=== PATIENT | female | born 1995 | race Caucasian/White ===

== ENCOUNTER 2017-04-24 22:10 | Inpatient (IN) ==
[2017-04-24] MEDS ORDERED: ACETAMINOPHEN 325 MG TABLET PO PRN (22:28)
[2017-04-24] MEDS ORDERED: ONDANSETRON 4 MG/2 ML VIAL IV PRN (22:28)
[2017-04-24] MEDS ORDERED: BUTORPHANOL 2 MG/ML VIAL IV PRN (22:28)
[2017-04-24] MEDS ORDERED: fentaNYL 2 MCG/ROPIV 0.2% EPID 150 ML EPIDURAL SCH (22:29)
[2017-04-24] MEDS ORDERED: ePHEDrine 50 MG/ML AMP IV PRN (22:29)
[2017-04-24] MEDS ORDERED: CITRIC ACID/SODIUM CITRATE 30 ML UDCUP PO ONE (22:29)
[2017-04-24] MEDS ORDERED: FAMOTIDINE 20 MG/2 ML VIAL IV ONE (22:29)
[2017-04-24] MEDS ORDERED: OXYTOCIN/LR 20 UNIT/1,000 ML BAG IV SCH (22:30)
[2017-04-24] MEDS ORDERED: MEPERIDINE 50 MG/1 ML VIAL IV ONE (22:30)
[2017-04-24] MEDS: LACTATED RINGERS 1,000 ML IV SCH ×2 (22:35→23:22)
[2017-04-24] MEDS ORDERED: ONDANSETRON 4 MG/2 ML VIAL ONE (22:37)
[2017-04-24] MEDS ORDERED: MEPERIDINE 50 MG/1 ML VIAL ONE (22:37)
[2017-04-24 22:48] LABS: Basophils % 0.3 % (0.0-0.8); Eosinophils # 0.5 10*3/uL (0.0-0.87); Eosinophils % 3.2 % (0.00-10.9); Hemoglobin 9.9 GM/DL (12.0-16.0); Immature Granulocytes % 0.6 %; Immature Granulocytes Absolute 0.08 #; Lymphocytes # 2.3 10*3/uL (1.4-4.0); Mean Corpuscular Hemoglobin 26 PG (27-34); Mean Corpuscular Volume 78.3 FL (87-102); Mean Platelet Volume 10.6 FL (9.6-12.0); Monocytes # 0.9 10*3/uL (0.11-0.8); Neutrophils # 10.5 10*3/uL (1.4-7.4); Neutrophils % 73.9 % (38.7-73.9); Platelet Count 211 T/CUMM (130-400); Red Blood Count 3.83 MC/CUMM (3.8-5.5); Red Cell Distribution Width 14.5 % (9.3-17.3); White Blood Count 14.2 T/CUMM (4-12)
[2017-04-24] MEDS ORDERED: LIDOCAINE 1% 50 ML VIAL ONE (23:12)
[2017-04-24] MEDS ORDERED: miSOPROStol 200 MCG TABLET ONE (23:12)
[2017-04-24] MEDS ORDERED: METHYLERGONOVINE 0.2 MG/1 ML AMP ONE (23:13)
[2017-04-24] MEDS ORDERED: CARBOPROST TROMETHAMINE 250 MCG/ML AMP IM ONE (23:13)
--- NOTE | 2017-04-24 23:13 | OB/GYN History & Physical ---
History of Present Illness History of present illness: Ms. Atkins is a 21 year old female Pt. 21y/o @ 39+3 wks YOUNG 04/28/17 presents with contractions since 6pm today. Pt. denies any vaginal bleeding or leakage of fluid. Pt. care with Dr Diaz and per pt uncomplicated except for +chlamydia 10/09/16. 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 admit to labor and delivery 2. labs 3. external monitoring 4. ivfs 5. anesthesia consult 6. AROM- clear fluid, iupc and ise placed Current Visit: Yes Results - Labs CBC & BMP: 04/24/17 22:42
--- NOTE | 2017-04-24 23:54 | Operative Note ---
Date of procedure: 04/24/17 Pre-op diagnosis: 21y/o @ 39+3 wks in active labor Post-op diagnosis: same Procedure: PROCEDURE- NORMAL SPONTANEOUS VAGINAL DELIVERY Pt. s/p of female infant delivered atraumatically at 2327 from the vertex presentation. Weight 2py37ku, apgars 8/9. Placenta delivered intact 3 vessel cord, bilateral 1st degree labial laceration repaired with 3.0 chromic in a running fashion. Excellent hemostasis. EBL 300cc. Anesthesia: none Surgeon / Physician: Nenita Tabares Estimated blood loss: other (300cc) Specimens: other (placenta, cord, membranes) Condition: stable Disposition: floor Results - Labs CBC & BMP: 04/24/17 22:42 Discharge Plan - Discharge Medications No Action No Known Home Medications [No Known Home Medications] - Follow Up or Referral - Forms/Instructions
[2017-04-25 06:44] LABS: Basophils % 0.3 % (0.0-0.8); Eosinophils # 0.1 10*3/uL (0.0-0.87); Eosinophils % 0.8 % (0.00-10.9); Hematocrit 27.9 VOL% (35.7-47.0); Hemoglobin 9.2 GM/DL (12.0-16.0); Immature Granulocytes % 0.6 %; Immature Granulocytes Absolute 0.09 #; Lymphocytes # 1.8 10*3/uL (1.4-4.0); Lymphocytes % 12.8 % (21.3-54.2); Mean Corpuscular Hemoglobin 26 PG (27-34); Mean Corpuscular Volume 78.2 FL (87-102); Mean Platelet Volume 11.1 FL (9.6-12.0); Monocytes # 0.9 10*3/uL (0.11-0.8); Monocytes % 6.2 % (1.7-12.7); Neutrophils # 11.4 10*3/uL (1.4-7.4); Neutrophils % 79.3 % (38.7-73.9); Platelet Count 189 T/CUMM (130-400); Red Blood Count 3.57 MC/CUMM (3.8-5.5); Red Cell Distribution Width 14.6 % (9.3-17.3); White Blood Count 14.3 T/CUMM (4-12)
[2017-04-25] MEDS: IBUPROFEN 800 MG TABLET PO PRN ×2 (08:00→20:13)
[2017-04-25] MEDS: DOCUSATE SODIUM 100 MG CAPSULE PO PRN (09:30)
--- NOTE | 2017-04-25 12:18 | OB/GYN Progress Note ---
Assessment and Plan (1) Active labor at term Status: Acute Assessment and plan: PPD#1 s/p SAVD. doing well. 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 Her bleeding is under control. And she is asking for a breast binder because she wants to bottle feed. Exam QUARRY MANAGER - Constitutional Vitals: Vital Signs Temp Pulse Resp BP Pulse Ox 04/25/17 11:38 97.6 F 56 L 20 132/72 98 04/25/17 10:00 20 04/25/17 08:00 18 04/25/17 07:14 97.6 F 52 L 18 123/79 98 04/25/17 06:00 18 04/25/17 04:00 97.6 F 60 18 131/57 98 04/25/17 03:00 97.9 F 65 20 150/72 98 04/24/17 22:46 97.9 F 66 20 147/98 General appearance: normal weight, no acute distress - Respiratory Respiratory exam: Absent: accessory muscle use - Cardiovascular Cardiovascular exam: Present: regular rate and rhythm - GI/Abdominal GI/Abdominal exam: Absent: guarding, tenderness, rebound - Extremities Exam Extremities exam: Absent: calf tenderness - Neurological Exam Neurological exam: Present: alert, oriented X3 - Psychiatric Psychiatric exam: Present: normal affect - Skin Skin exam: Present: normal color Results - Labs CBC & BMP: 04/25/17 06:22
--- NOTE | 2017-04-26 07:14 | Discharge Summary ---
Hospital Course - Hospital Course Hospital Course: The patient is a normally a patient of transmitted Dr. Diaz was out of town and the patient came in in labor and Dr. Tabares delivered the patient via vaginal delivery without any complications. Her hospital course was uneventful. She was discharged home on day #2 and told to follow -up with Dr. Diaz. Diagnosis - Discharge Diagnosis (1) Active labor at term Status: Acute Specialty Discharge - Follow Up or Referrals Follow up with: Chika Diaz DO [Physician] - (6 weeks) Discharge Plan - Discharge Data Disposition: Disch To Home/Self Care Condition at Discharge: Stable Discharge Diet: advance to your usual diet Activity: resume usual activities as tolerated Hygiene: may shower Weight Bearing at Discharge: full weight bearing Driving: no restrictions Contact your physician if you experience:: fever over 101, Difficulty voiding, Redness or swelling, Nausea/Vomiting, Shortness of breath, Bleeding, pain uncontrolled by pain medications - Discharge Medications No Action No Known Home Medications [No Known Home Medications] - Follow Up or Referral - Forms/Instructions Exam - Constitutional Vitals: Period Temp Pulse Resp BP Sys/Vaughn Pulse Ox Last 24 Hr 96.8 F-97.6 F 52-58 18-20 101-132/54-79 97-98 General appearance: normal weight, no acute distress - Respiratory Respiratory exam: Absent: accessory muscle use - Cardiovascular Cardiovascular exam: Present: regular rate and rhythm - GI/Abdominal GI/Abdominal exam: Present: soft. Absent: guarding, tenderness, rebound - Extremities Exam Extremities exam: Absent: calf tenderness - Neurological Exam Neurological exam: Present: alert, oriented X3 - Psychiatric Psychiatric exam: Present: normal affect, normal mood DS: Provider Date of admission: 04/24/17 22:33 Primary care physician: . No PCP Attending physician on admission: Nenita Tabares, Consults: 04/24/17 22:28 Consult to Anesthesiology [CONS] Routine Consulting Provider: Reason for Anesthesiology: Epidural Consult Comment: Epidural for pain managment Discharging clinician: Kori Porras- Expected date of discharge: 04/26/17
[2017-04-26 07:40] VITALS: BP 115/71
[2017-04-26] MEDS: IBUPROFEN 800 MG TABLET PO PRN (09:00)
[2017-04-26] MEDS: DOCUSATE SODIUM 100 MG CAPSULE PO PRN (09:00)
--- NOTE | 2017-04-29 12:19 | Pathology Report from [facility] ---
[facility] ACCESSION # : [id number] PATIENT NAME : Chika Atkins ORDERING DR : Nenita Tabares MD CLINICAL HX: IUP @ 39-3/7 weeks gestation - Active labor POST-OP DX: Same SPECIMEN INFO: Placenta GROSS DESCRIPTION: Received fresh labeled CHIKA ATKINS & PLACENTA is a 500 gm placenta measuring 18.0 x 16.0 x 2.9 cm. The membranes are villavicencio and translucent. The umbilical cord measures 18.5 cm, contains three vessels and is eccentrically inserted. The surface is blue alvarenga and partially circumarginate with a few small areas of subchorionic fibrin noted. The maternal surface displays intact red alvarenga cotyledons with no abnormalities appreciated upon sectioning. Sections submitted A- membranes and cord, B- and maternal surfaces. DIAGNOSIS FOR CHIKA ATKINS: PLACENTA, MEMBRANES, UMBILICAL CORD: Focal placental infarction, mild intervillous blood, subchorionic blood clot. Tri- vessel umbilical cord, eccentrically inserted. Membranes with focal acute and chronic inflammation and attached blood. COLLECTED DATE: 04/26/2017 [facility] REPORT DATE: 04/29/2017 ELECTRONICALLY SIGNED BY: Arslan Gan M.D. 04/29/2017 - 10:28:39 SYMONE
== END 2017-04-26 11:50 | disposition home or self-care (01) | DRG 560 ==
LOC: N.LDOUT 22:10 → N.LD 22:14 → N.OB 04-25 03:00
PROVIDERS: ADMIT Obstetrics & Gynecology; ATTEND Obstetrics & Gynecology

== ENCOUNTER 2022-08-27 08:45 | Inpatient (IN) ==
[2022-08-27] MEDS ORDERED: OXYTOCIN/LR 20 UNIT/1,000 ML BAG IV ONE ×2 (09:11→17:01)
[2022-08-27] MEDS ORDERED: miSOPROStoL 200 MCG TABLET RECTAL PRN (09:11)
[2022-08-27] MEDS ORDERED: LACTATED RINGERS 250 ML IV ONE (09:11)
[2022-08-27] MEDS ORDERED: METHYLERGONOVINE 0.2 MG/1 ML AMP IM PRN (09:11)
[2022-08-27] MEDS ORDERED: ONDANSETRON 4 MG/2 ML VIAL IV PRN ×2 (09:11→17:01)
[2022-08-27] MEDS ORDERED: TRANEXAMIC ACID 1,000 MG in SODIUM CHLORIDE 0.9% 100 ML IV PRN (09:11)
[2022-08-27] MEDS ORDERED: CARBOPROST TROMETHAMINE 250 MCG/ML AMP IM PRN (09:11)
[2022-08-27] MEDS ORDERED: LACTATED RINGERS 1,000 ML IV SCH (09:30)
[2022-08-27] MEDS ORDERED: OXYTOCIN/LR 20 UNIT/1,000 ML BAG IV SCH (09:30)
[2022-08-27 09:36] LABS: Basophils # 0.1 10*3/uL (0.0-0.2); Basophils % 0.5 % (0.0-0.8); Eosinophils # 0.1 10*3/uL (0.0-0.87); Eosinophils % 0.9 % (0.00-10.9); Hematocrit 33.4 VOL% (35.7-47.0); Hemoglobin 10.8 GM/DL (12.0-16.0); Immature Granulocytes % 0.4 %; Immature Granulocytes Absolute 0.04 #; Lymphocytes # 2.9 10*3/uL (1.4-4.0); Lymphocytes % 28.3 % (21.3-54.2); Mean Corpuscular HGB Conc 32.3 GM/DL (32-36); Mean Corpuscular Volume 82.9 FL (87-102); Mean Platelet Volume 10.6 FL (9.6-12.0); Monocytes # 0.6 10*3/uL (0.11-0.8); Monocytes % 5.6 % (1.7-12.7); Neutrophils % 64.3 % (38.7-73.9); Platelet Count 272 T/CUMM (130-400); Red Blood Count 4.03 MC/CUMM (3.8-5.5); Red Cell Distribution Width 14.2 % (9.3-17.3); White Blood Count 10.1 T/CUMM (4-12)
[2022-08-27] MEDS ORDERED: BUTORPHANOL 2 MG/ML VIAL IV PRN (13:55)
[2022-08-27] MEDS ORDERED: miSOPROStoL 200 MCG TABLET ONE (14:06)
[2022-08-27] MEDS ORDERED: TRANEXAMIC ACID 1,000 MG/10 ML VIAL ONE (14:07)
[2022-08-27] MEDS ORDERED: METHYLERGONOVINE 0.2 MG/1 ML AMP ONE (14:08)
[2022-08-27] MEDS ORDERED: CARBOPROST TROMETHAMINE 250 MCG/ML AMP IM ONE (14:08)
[2022-08-27] MEDS ORDERED: NALOXONE 0.4 MG/ML VIAL IV PRN (15:42)
[2022-08-27] MEDS ORDERED: hydrOXYzine HCL 25 MG/1 ML VIAL IM PRN (15:42)
[2022-08-27] MEDS ORDERED: LACTATED RINGERS 1,000 ML IV ONE (15:42)
[2022-08-27] MEDS ORDERED: ePHEDrine 50 MG/ML VIAL IV PRN (15:42)
[2022-08-27] MEDS ORDERED: FAMOTIDINE 20 MG/2 ML VIAL IV ONE (15:42)
[2022-08-27] MEDS ORDERED: CITRIC ACID/SODIUM CITRATE 30 ML UDCUP PO ONE (15:42)
[2022-08-27] MEDS ORDERED: diphenhydrAMINE 50 MG/1 ML VIAL IV PRN ×2 (15:42)
[2022-08-27] MEDS ORDERED: fentaNYL 2 MCG/ROPIV 0.2% EPID 100 ML EPIDURAL SCH (16:00)
[2022-08-27 17:00] LABS: Cord Arterial Blood HCO3 18.6 MMOL/L
[2022-08-27] MEDS ORDERED: LANOLIN 50% CREAM 0.3 OZ TUBE TOP PRN (17:01)
[2022-08-27] MEDS ORDERED: RHO(D) IMMUNE GLOBULIN 300 MCG SYRINGE IM ONE (17:01)
[2022-08-27] MEDS ORDERED: MEASLES/MUMPS/RUBELLA VACCINE 0.5 ML VIAL SUBCUT ONE (17:01)
[2022-08-27] MEDS ORDERED: BISACODYL 10 MG SUPP RECTAL PRN (17:01)
[2022-08-27] MEDS ORDERED: oxyCODONE/ACETAMINOPHEN 5-325 MG TABLET PO PRN ×2 (17:01)
[2022-08-27] MEDS ORDERED: HYDROCORTISONE 2.5% RECTAL CREAM 30 GM TUBE TOP PRN (17:01)
[2022-08-27] MEDS ORDERED: WITCH HAZEL PADS 100/JAR TOP PRN (17:01)
[2022-08-27] MEDS ORDERED: DIPH/TET/ACEL PERT BOOSTER VACCINE 0.5 ML VIAL IM ONE (17:01)
[2022-08-27] MEDS ORDERED: BENZOCAINE 20%/MENTHOL 0.5% SPRAY 56 GM CAN TOP PRN (17:01)
[2022-08-27] MEDS ORDERED: ACETAMINOPHEN 325 MG TABLET PO PRN (17:01)
[2022-08-27 17:20] LABS: Cord Venous Blood HCO3 21.1 MMOL/L; Cord Venous Blood PCO2 32.5 MMHG; Cord Venous Blood PO2 33.6
[2022-08-27] MEDS: DOCUSATE SODIUM 100 MG CAPSULE PO SCH (20:53)
[2022-08-28] MEDS: IBUPROFEN 800 MG TABLET PO PRN ×2 (04:10→19:39)
[2022-08-28 05:36] LABS: Basophils % 0.3 % (0.0-0.8); Eosinophils % 0.1 % (0.00-10.9); Hematocrit 30.2 VOL% (35.7-47.0); Hemoglobin 9.9 GM/DL (12.0-16.0); Immature Granulocytes % 0.7 %; Immature Granulocytes Absolute 0.11 #; Lymphocytes # 3.1 10*3/uL (1.4-4.0); Lymphocytes % 19.9 % (21.3-54.2); Mean Corpuscular HGB Conc 32.8 GM/DL (32-36); Mean Corpuscular Volume 81.8 FL (87-102); Mean Platelet Volume 11.1 FL (9.6-12.0); Monocytes # 0.8 10*3/uL (0.11-0.8); Monocytes % 5.3 % (1.7-12.7); Neutrophils % 73.7 % (38.7-73.9); Platelet Count 224 T/CUMM (130-400); Red Blood Count 3.69 MC/CUMM (3.8-5.5); Red Cell Distribution Width 14.2 % (9.3-17.3); White Blood Count 15.8 T/CUMM (4-12)
[2022-08-28] MEDS: DOCUSATE SODIUM 100 MG CAPSULE PO SCH ×3 (07:42→21:01)
[2022-08-29] MEDS: DOCUSATE SODIUM 100 MG CAPSULE PO SCH (08:47)
[2022-08-29 09:07] VITALS: BP 111/88
== END 2022-08-29 13:20 | disposition home or self-care (01) | DRG 560 ==
LOC: N.LDOUT 08:45 → N.LD 08:49 → N.OB 20:15
PROVIDERS: ADMIT Obstetrics & Gynecology; ATTEND Obstetrics & Gynecology